=== PATIENT | female | born 1950 | race Caucasian/White ===

== ENCOUNTER 2017-12-01 08:29 | Outpatient (CLI) | payer MEDICARE ==
[~2017-12-01] VITALS: Ht 167.6 cm; Wt 99.1 kg
--- NOTE | ~2017-12-01 | HEMODYNAMI ---
PATIENT:LUCHO DUNCAN MEDICAL RECORD: [id number] : 52 LOCATION:[facility] ADMISSION DATE: 12/01/17 Generatedon:12/01/201711:15 Patient name: LUCHO DUNCAN Patient #: [id number] SSN: D OB: 1950 Date of study: 12/01/2017 Page: Of Hemodynamic Procedure Report Patient Data Patient Demographics Procedure consent was obtained First Name: LUCHO Gender: Female Last Name: PERLA : 1950 [facility] Initial: GENEVIEVE Age: 67 year(s) Patient #: [id number] Race: Unknown Additional ID: [id number] Contact details [address]: [address] [place] [address] State: [place] City: [place] Zip code: [address] Past Medical History Allergies Allergen Reaction Date Comments Reported Other allergy 12/01/2017 Sulfa, Metals Admission Admission Data Admission Date: 12/01/2017 Admission Time: 8:29 Admit Source: Other Height (in.): 66 BSA: 2.07 (m2) Height (cm.): 167.64 BMI: 35.19 (kg/m2) Weight (lbs.): 218 Weight (kg.): 98.88 Procedure Procedure Types Cath Procedure Diagnostic Procedure [facility] w/Coronaries PCI Procedure Coronary Stent Coronary Stent Initial Procedure Description Procedure Date Procedure Date: 12/01/2017 Procedure Start Time: 10:55 Procedure End Time: 11:13 Procedure Staff Name Function Harris Salas MD Performing Physician Gala Wilks RT Monitor Alma Willoughby RT Scrub Elizabeth Gerard RN Nurse Procedure Data Cath Procedure Fluoroscopy Diagnostic fluoroscopy Total fluoroscopy Time: 5.2 time: 5.2 min min Diagnostic fluoroscopy Total fluoroscopy dose: 812 dose: 812 mGy mGy Contrast Material Contrast Material Type Amount (ml) Isovue 300 85 Entry Location Entry Primary Successful Side Size Upsize Upsize Entry Closure Succes sful Closure Location (Fr) 1 (Fr) 2 (Fr) Remarks Device Remarks Femoral Right 5 Fr 6 Fr Exoseal artery Short Estimated blood loss: 10 ml Diagnostic catheters Device Type Used For End Catheter Placement MULTIPACK Pigtail 5 Fr Procedure catheter MULTIPACK JL 4.0 5Fr Procedure catheter Procedure Complications No complications Procedure Medications Medication Administration Route Dosage 0.9% NaCl I.V. 100 ml/hr Oxygen NC 2 l/min Lidocaine 2% added to field 20 Heparin Flush Bag added to field 2 bags (1000units/500ml NS) Fentanyl I.V. 50 mcg Versed I.V. 1 mg Versed I.V. 1 mg Fentanyl I.V. 50 mcg Fentanyl I.V. 50 mcg Fentanyl I.V. 50 mcg Heparin Bolus I.V. 4000 units Hemodynamics Rest BSA: 2.07 (m2) O2 Consumption: Estimated: 281.52 (ml/min) O2 Consumption indexed : Estimated:136 (ml/min/m) Pre Cath Intra NCS Post Cath Vital Signs Time Heart Resp SPO2 etCO2 NIBP (mmHg) Rhythm Pain Sedation Rate (ipm) (%) (mmHg) Status Level (bpm) 10:27:41 65 16 98 33.8 137/70(113) NSR 0 (11) 10(A) , No pain 10:31:59 64 15 98 33.8 132/69(112) NSR 0 (11) 10(A) , No pain 10:36:17 62 20 98 33 126/71(106) NSR 0 (11) 10(A) , No pain 10:40:27 62 17 96 35.3 107/64(86) NSR 0 (11) 10(A) , No pain 10:44:37 63 17 97 36 117/61(95) NSR 0 (11) 10(A) , No pain 10:48:53 63 17 97 36 112/60(88) NSR 0 (11) 10(A) , No pain 10:53:05 64 16 96 0 111/64(81) NSR 0 (11) 10(A) , No pain 10:57:19 68 15 96 26.2 121/58(79) NSR 0 (11) 9(A) , No pain 11:01:29 66 16 96 34.5 116/63(93) NSR 0 (11) 9(A) , No pain 11:05:39 70 16 96 34.5 115/63(84) NSR 0 (11) 9(A) , No pain 11:09:46 71 14 96 36.8 134/75(105) NSR 0 (11) 10(A) , No pain 11:14:03 70 12 96 36.7 141/74(117) NSR 0 (11) 10(A) , No pain Medications Time Medication Route Dose Verified Delivered Reason Not es Effectiveness by by 10:27:00 0.9% NaCl I.V. 100ml/hr Elizabeth Elizabeth used for Moustapha Gerard RN procedure 10:27:11 Oxygen NC 2 l/min Harris Elizabeth Per physician Josue Gerard RN 10:27:19 Lidocaine 2% added 20ml Harris Harris for local to vial Josue Salas MD anesthetic field 10:27:29 Heparin Flush added 2 bags Harris Harris used for Bag to Josue Salas MD procedure (1000units/500ml field NS) 10:52:39 Fentanyl I.V. 50 mcg Harris Elizabeth for sedation Josue Gerard RN 10:52:47 Versed I.V. 1 mg Harris Elizabeth for sedation Josue Gerard RN 10:54:07 Versed I.V. 1 mg Harris Elizabeth for sedation Josue Gerard RN 10:54:14 Fentanyl I.V. 50 mcg Harris Elizabeth for sedation Josue Gerard RN 10:56:52 Fentanyl I.V. 50 mcg Harris Trippfany for sedation Josue Gerard RN 10:58:41 Fentanyl I.V. 50 mcg Harris Elizabeth for sedation Josue Gerard RN 10:59:40 Heparin Bolus I.V. 4000 Harris Elizabeth for gonzález ified units Josue Gerard RN anticoagulation by Procedure Log Time Note 10:11:24 Admit Source: Other 10:11:58 Diagnostic Cath status Elective 10:12:00 Alma Willoughby RT(R) sent for patient. Start room use. 10:12:02 Time tracking: Regular hours 10:12:07 Plan of Care:Hemodynamics will remain stable., Cardiac rhythm will remain stable., Comfort level will be maintained., Respiratory function will remain adequate., Patient/ family verbilizes understanding of procedure., Procedure tolerated without complication., Recovers from procedure without complications.. 10:19:55 Patient received from Pre/Post Procedure Room to CCL 2 Alert and oriented. Tansferred to table in Supine position. 10:20:01 Warm blankets applied, and brian hugger turned on for patient comfort. 10:20:02 Correct patient and procedure confirmed by team. 10:20:03 Signed procedure consent form obtained from patient. 10:20:10 H&P Date Dictated: 12/01/2017 Emergent; H&P N/A. 10:20:11 Pre-procedure instructions explained to patient. 10:20:30 Family in waiting room. 10:20:32 Patient NPO since Midnight. 10:21:44 Patient allergic to Other allergySulfa, Metals 10:21:50 Is the patient allergic to Iodine/contrast media? No. 10:24:46 Was the patient premedicated? No 10:24:47 Is patient on blood thinner?Yes 10:24:50 ACC The patient was administered the following blood thiners within the last 24 hours: ACCPlavix 10:24:52 Patient diabetic? Yes. 10:24:53 If diabetic: On Metformin? No 10:24:55 Previous problem with sedation/anesthesia? No ? 10:24:58 Snore? Yes 10:24:58 Sleep apnea? Yes 10:24:59 Deviated septum? No 10:25:00 Opens mouth fully? Yes 10:25:01 Sticks out tongue? Yes 10:25:03 Airway obstruction? No ? 10:25:08 Dentures? Yes in tight 10:25:13 Pre procedure: right dorsailis pedis pulse 2+ Normal; easily identifiable; not easily obliterated 10:25:15 Pre procedure: left dorsailis pedis pulse 2+ Normal; easily identifiable; not easily obliterated 10:25:18 Patient pain scale 0/10 ?. 10:25:23 IV patent on arrival in left forearm with 0.9% NaCl at O. 10:25:26 Lab results completed and on chart. 10:25:30 Right groin area was prepped with chlora-prep and draped in sterile fashion 10:25:30 Alarms reviewed by R. N. 10:25:31 Sharps counted by scrub and verified by R.N. 10:26:36 Vital chart was started 10:27:00 0.9% NaCl 100ml/hr I.V. was administered by Elizabeth Gerard RN; used for procedure; 10:27:11 Oxygen 2 l/min NC was administered by Elizabeth Gerard RN; Per physician; 10:27:19 Lidocaine 2% 20ml vial added to field was administered by Harris Salas MD; for local anesthetic; 10:27:29 Heparin Flush Bag (1000units/500ml NS) 2 bags added to field was administered by Harris Salas MD; used for procedure; 10::39 Physician paged 10:44:23 Patient Height : 66 inches 10:44:33 Patient Weight : 218 lbs 10:52:15 Physician arrived 10:52:15 --------ALL STOP TIME OUT------ 10:52:16 Final Timeout: patient, procedure, and site verified with staff and physician. All members of the team are in agreement. 10:52:20 Right groin site verified by team. 10:52:24 Physical assessment completed. ASA score P 2 - A patient with mild systemic disease as per Harris Salas MD. 10:52:31 Sedation plan: IV Moderate Sedation Medication:Versed, Fentanyl 10:52:39 Fentanyl 50 mcg I.V. was administered by Elizabeth Gerard RN; for sedation; 10:52:47 Versed 1 mg I.V. was administered by Elizabeth Gerard RN; for sedation; 10:53:11 Use device set Femoral Dx 10:54:07 Versed 1 mg I.V. was administered by Elizabeth Gerard RN; for sedation; 10:54:14 Fentanyl 50 mcg I.V. was administered by Elizabeth Gerard RN; for sedation; 10:54:46 ACIST Syringe (88004) opened to sterile field. 10:54:46 Bag Decanter (2002) opened to sterile field. 10:54:47 Medline Cath Pack ([id number]) opened to sterile field. 10:54:47 SHEATH 5FR [place] (PEV471) opened to sterile field. 10:54:49 DIAGNOSTIC WIRE .035 260cm J wire (682918) opened to sterile field. 10:54:50 ACIST Hand Control (28739) opened to sterile field. 10:54:51 ACIST Manifold (56657) opened to sterile field. 10:54:52 DIAGNOSTIC Multipack 5Fr catheter set (BA6101) opened to sterile field. 10:54:55 Tegaderm 4 x 4 (1626W) opened to sterile field. 10:54:56 PERCUTANEOUS ENTRY 19GA needle opened to sterile field. 10:55:00 Procedure started. 10:55:01 Full Disclosure recording started 10:55:12 Local anesthetic to right femoral artery with Lidocaine 2% by Harris Salas MD.INITIAL ACCESS ONLY 10:55:25 A 5 Fr sheath was inserted into the Right Femoral artery 10:56:52 Fentanyl 50 mcg I.V. was administered by Elizabeth Gerard RN; for sedation; 10:57:31 A MULTIPACK Pigtail 5 Fr catheter was advanced over the wire and used for Procedure. 10:57:34 LV angiography performed. 10:57:41 EF : 55 % 10:57:43 Catheter removed. 10:58:14 A MULTIPACK JL 4.0 5Fr catheter was advanced over the wire and used for Procedure. 10:58:30 LCA angiography performed. 10:58:41 Fentanyl 50 mcg I.V. was administered by Elizabeth Gerard RN; for sedation; 10:58:47 Catheter removed. 10:59:40 Heparin Bolus 4000 units I.V. was administered by Elizabeth Gerard RN; for anticoagulation; verified by 11:01:45 CHOICE PT Extra Support 182cm wire ([id number]) opened to sterile field. 11:01:56 INFLATOR Merit BasixCompak (NJ7843) opened to sterile field. 11:01:57 GUIDE 6FR HS II catheter (UE3OVOP) opened to sterile field. 11:02:03 SHEATH 6FR [place] (YLF630) opened to sterile field. 11:02:24 Proceeding to intervention. 11:02:33 Sheath upsized to a 6 Fr Short. 11:02:46 6 Fr HS 2 guide catheter was inserted over the wire 11:02:51 pt ex wire advanced. 11:02:53 Wire advanced across lesion. 11:03:30 Inflation number: 1 A EUPHORA 3.5 x 15 Balloon ([id number]) was prepped and advanced across the Dist RCA, then inflated to 21 TE for 0:10 (min:sec). 11:03:51 Inflation number: 2 The EUPHORA 3.5 x 15 Balloon ([id number]) was reinflated across the Dist RCA, to 21 TE for 0:00 (min:sec). 11:03:55 Inflation number: 3 The EUPHORA 3.5 x 15 Balloon ([id number]) was reinflated across the Dist RCA, to 21 TE for 0:00 (min:sec). 11:04:11 Inflation number: 4 The EUPHORA 3.5 x 15 Balloon ([id number]) was reinflated across the Dist RCA, to 21 TE for 0:00 (min:sec). 11:04:17 Inflation number: 5 The EUPHORA 3.5 x 15 Balloon ([id number]) was reinflated across the Dist RCA, to 13 TE for 0:00 (min:sec). 11:04:56 Balloon removed over the wire. 11:06:00 Inflation Number: 1 A OPHELIA RX 3.5 x 18 stent ([id number]) was prepped and advanced across the Mid RCA. The stent was deployed at 21 TE for 0:10 (min:sec). 11:06:08 Inflation number: 2 The stent balloon was then re-inflated across the Mid RCA to 21 TE for 0:00 (min:sec). 11:07:38 Stent catheter was removed intact over wire. 11:08:29 Inflation Number: 1 A OPHELIA RX 3.5 x 26 stent ([id number]) was prepped and advanced across the Prox RCA. The stent was deployed at 21 TE for 0:10 (min:sec). 11:09:22 Stent catheter was removed intact over wire. 11:09:40 EXOSEAL 6Fr (EX600) opened to sterile field. 11:09:59 Sheath removed intact; hemostasis achieved with Exoseal to the Right Femoral artery. 11:10:12 Procedure ended.(Physican Out) 11:10:30 Fluoroscopy time 05.20 minutes. 11:10:34 Flurop Dose total: 812 11:10:34 Fluoroscopy dose: 812 mGy 11:10:38 Contrast amount:Isovue 300 85ml. 11:10:40 Sharps counted by scrub and verified by R.N. 11:10:42 Insertion/operative site no bleeding no hematoma. 11:10:46 Post right femoral artery:stable 11:10:56 Post Procedure Pulses reassessed and unchanged 11:11:05 Post-procedure physical assessment completed. ASA score P 2 - A patient with mild systemic disease as per Harris Salas MD. 11:11:08 Post procedure rhythm: unchanged. 11:11:11 Estimated blood loss: 10 ml 11:11:13 Post procedure instruction explained to patient.Patient verbalizes understanding. 11:11:27 Procedure type changed to Cath procedure, Diagnostic procedure, LHC, LHC w/Coronaries, PCI procedure, Coronary Stent, Coronary Stent Initial 11:11:29 Procedure and supply charges have been captured, reviewed, submitted and are correct. 11:13:15 Procedure Complication : No complications 11:13:20 Vital chart was stopped 11:13:29 See physician's report for complete and final results. 11:13:32 Report given to Pre/Post Procedure Room. 11:13:37 Patient transfered to Pre/Post Procedure Room with Stretcher. 11:13:39 Procedure ended. 11:13:39 Full Disclosure recording stopped 11:13:46 End room use (Document Last) Intervention Summary Intervention Notes Time ActionType Lesion and Equipment Used Action# Pressure Duration Attributes 11:03:30 Inflate Dist RCA EUPHORA 3.5 x 1 21 00:10 balloon 15 Balloon ([id number]) 11:03:51 Reinflate Dist RCA EUPHORA 3.5 x 2 21 00:00 balloon 15 Balloon ([id number]) 11:03:55 Reinflate Dist RCA EUPHORA 3.5 x 3 21 00:00 balloon 15 Balloon ([id number]) 11:04:11 Reinflate Dist RCA EUPHORA 3.5 x 4 21 00:00 balloon 15 Balloon ([id number]) 11:04:17 Reinflate Dist RCA EUPHORA 3.5 x 5 13 00:00 balloon 15 Balloon ([id number]) 11:06:00 Place stent Mid RCA OPHELIA RX 3.5 x 1 21 00:10 18 stent ([id number]) 11:06:08 Reinflate Mid RCA OPHELIA RX 3.5 x 2 21 00:00 stent 18 stent balloon ([id number]) 11:08:29 Place stent Prox RCA OPHELIA RX 3.5 x 1 21 00:10 26 stent ([id number]) Device Usage Item Name Manufacture Quantity Catalog Number [facility] Part Current M inimal Lot# / Charge Number Stock Stock Serial# Code ACIST Syringe Acist 1 95160 892098 605694 941440 2 0 (46555) Medical Systems Inc Bag Decanter Microtek 1 276604 65571 976887 5 () Medical Inc. Medline Cath Cardinal 1 [id number] 949591 24717 799846 5 Pack Health ([id number]) SHEATH 5FR Terumo 1 KZQ203 394658 476202 335919 4 0 [place] (TBI770) DIAGNOSTIC St [place] 1 357507 028690 857651 333402 3 0 WIRE .035 260cm J wire (183716) ACIST Hand Acist 1 60605 796403 178515 692074 5 Control Medical (30160) Systems Inc ACIST Manifold Acist 1 06076 217749 689482 281963 5 (71330) Medical Systems Inc DIAGNOSTIC Cardinal 1 JB1374 084792 27520 958793 3 0 Multipack 5Fr Health catheter set (CL7140) Tegaderm 4 x 4 3M 1 1626W 824933 187293 611872 5 (1626W) PERCUTANEOUS Cook Medical 1 N78809 893237 850552 5 ENTRY 19GA needle MULTIPACK Cardinal 1 238621 5 Pigtail 5 Fr Health catheter MULTIPACK JL Cardinal 1 219855 5 4.0 5Fr Health catheter CHOICE PT [place] 1 [id number] 404624 492128 587156 5 Extra Support Scientific 182cm wire ([id number]) INFLATOR Merit Merit 1 NG4684 395098 030030 324103 1 5 [employer] (PY8785) GUIDE 6FR HS Medtronic 1 IL5RNKI 178818 14972 369004 1 II catheter (DC5SGFA) SHEATH 6FR Terumo 1 KHY135 891711 465208 442239 4 0 [place] (BVO856) EUPHORA 3.5 x Medtronic 1 [id number] 066957 093987 770908 5 [id number] 15 Balloon ([id number]) OPHELIA RX 3.5 x Medtronic 1 [id number] 789184 2856466 267357 5 [id number] 18 stent ([id number]) OPHELIA RX 3.5 x Medtronic 1 [id number] 710362 9598376 277526 5 [id number] 26 stent ([id number]) EXOSEAL 6Fr Cardinal 1 EX600 285128 700727 242886 1 0 (EX600) Health Signature Audit [place] Stage Time Signature Unsigned Intra-Procedure 12/01/2017 Gala Wilks 11:15:50 AM RT(R) Signatures Monitor : Gala Wilks Signature : RT Date : Time : [id number] [place] [address]
--- NOTE | ~2017-12-01 | OP ---
PATIENT NAME: LUCHO DUNCAN MEDICAL RECORD: [id number] :52 LOCATION:D.CAT ADMISSION DATE: SURGEON: AMARI PEDRAZA MD DATE OF OPERATION: 12/01/2017 PROCEDURES: 1. PTCA stent RCA. 2. Left heart catheterization. 3. Selective coronary angiography. 4. Left ventriculogram. PROCEDURE IN DETAIL: After informed consent was obtained and after detailed explanation of risks, benefits as well as alternative therapies, the patient elected to proceed with angiogram and angioplasty. The right femoral area was prepped and draped in normal sterile fashion. The right femoral artery was cannulated via modified Seldinger technique with placement of 6-Kazakh sheath. All catheters exchanged through this sheath. FINDINGS: Left ventriculogram was performed and in standard 30-degree LUNSFORD view reveals good cardiac wall motion throughout all segments. Overall ejection fraction 55% to 60%. SELECTIVE CORONARY ANGIOGRAPHY: 1. Left main is with no significant angiographic disease. 2. Left anterior descending has previously placed stent that is widely patent with no significant restenosis. No disease elsewise. 3. Left circumflex has previously placed stent that is widely patent with no significant restenosis. No disease elsewise. 4. The right coronary has previously placed stents. There are multiple areas of 90% and some in-stent restenosis ____. PTCA STENT OF THE RIGHT CORONARY: Stents used are 3.5 x 26 and 3.5 x 18, both Mac stents. Result was 0% residual stenosis. OVERALL IMPRESSION: Successful percutaneous transluminal coronary angioplasty stent of the right coronary artery going from 90% initial stenosis to 0% residual. TRANSINT:[id number] Voice Confirmation ID: [id number] DOCUMENT ID: [id number] AMARI PEDRAZA MD CC: [id number] DICTATION DATE: 12/01/17 1114 BOILERMAKER ASSEMBLY AND ERECTION: 12/01/17 1148 DEP CLI 12/01/17 [place] [address]
[~2017-12-01 08:29] MED LIST: BYSTOLIC10 MG PO; COZAAR50 MG PO; GLUCOTROL 5 MG T5 MG; LASIX20 MG PO; MEVACOR20 MG PO; PLAVIX75 MG PO; REQUIP0.5 MG PO; ZOLOFT20 MG/ML PO
[2017-12-01] MEDS ORDERED: AMBIEN5 MG PO (09:27)
[2017-12-01] MEDS ORDERED: NEURONTIN 300300 MG PO (09:28)
[2017-12-01] MEDS ORDERED: MYSOLINE 50 MG50 MG PO (09:28)
[2017-12-01] MEDS ORDERED: PROBIOTIC1 EAC1 PO (09:29)
[2017-12-01] MEDS ORDERED: SINGULAIR10 MG PO (09:29)
[2017-12-01] MEDS ORDERED: VITAMIN D31000 UNIT PO (09:30)
[2017-12-01 09:35] VITALS: BP 122/84; Ht 167.6 cm; Wt 99.1 kg
[2017-12-01 09:57] LABS: ANION GAP 14.5 mmol/L (8-16); CALCIUM 8.8 mg/dL (8.5-10.1); CARBON DIOXIDE 25.5 mmol/L (21.0-32.0); CREATININE - SERUM 1.6 mg/dL (0.6-1.3)
[2017-12-01 10:29] LABS: BASOPHILS 0.1 % (0-2); EOSINOPHILS 2.8 % (0-7); HEMATOCRIT 36.2 % (36.0-48.0); HEMOGLOBIN 12.2 g/dL (12-16); IMMATURE GRANULOCYTES 0.5 % (0-5); LYMPHOCYTES 20.7 % (15-50); MCH 31.4 pg (26.0-34.0); MCHC 33.7 g/dL (31.0-37.0); MCV 93.3 fL (80.0-100.0); MEAN PLATELET VOLUME 10.9 fL (7.4-10.4); MONOCYTES 7.6 % (2-11); NEUTROPHILS 68.3 % (40-80); PLATELET COUNT 162 10x3/uL (130-400); RBC 3.88 10x6/uL (4.00-5.40); RDW 13.7 % (11.5-14.5); WBC 8.1 10x3/uL (4.8-10.8)
== END 2017-12-01 15:20 | disposition home or self-care (01) ==
LOC: D.CATH 08:29
PROVIDERS: Internal Medicine Interventional Cardiology
DX: I25.119 Atherosclerotic heart disease of native coronary artery with unspecified angina pectoris (principal); I10 Essential (primary) hypertension; E11.9 Type 2 diabetes mellitus without complications; F17.200 Nicotine dependence, unspecified, uncomplicated; Z01.812 Encounter for preprocedural laboratory examination
CPT/HCPCS: 93458; C9600

== ENCOUNTER 2018-05-08 09:17 | Outpatient (CLI) | payer MEDICARE ==
[~2018-05-08] VITALS: Ht 167.6 cm; Wt 100.0 kg
--- NOTE | ~2018-05-08 | HEMODYNAMI ---
PATIENT:LUCHO DUNCAN MEDICAL RECORD: [id number] : 52 LOCATION:[facility] ADMISSION DATE: 05/08/18 Generatedon:05/08/201812:13 Patient name: LUCHO DUNCAN Patient #: [id number] SSN: D OB: 1950 Date of study: 05/08/2018 Page: Of Hemodynamic Procedure Report Patient Data Patient Demographics Procedure consent was obtained First Name: LUCHO Gender: Female Last Name: PERLA : 1950 [facility] Initial: GENEVIEVE Age: 67 year(s) Patient #: [id number] Race: Unknown Additional ID: [id number] Contact details [address]: [address] [place] [address] State: [place] City: [place] Zip code: [address] Past Medical History Allergies Allergen Reaction Date Comments Reported Other allergy 12/01/2017 Sulfa, Metals Other allergy 05/08/2018 metals Sulfa drugs 05/08/2018 Admission Admission Data Admission Date: 05/08/2018 Admission Time: 9:17 Procedure Procedure Types Cath Procedure Diagnostic Procedure [facility] w/Coronaries PCI Procedure Coronary Stent Coronary Stent Initial Procedure Description Procedure Date Procedure Date: 05/08/2018 Procedure Start Time: 11:54 Procedure End Time: 12:12 Procedure Staff Name Function Harris Salas MD Performing Physician Madelyn Grady RT Monitor Kiko Brown RN Nurse Armida Perdomo RT Scrub Procedure Data Cath Procedure Fluoroscopy Diagnostic fluoroscopy Total fluoroscopy Time: 3.5 time: 3.5 min min Diagnostic fluoroscopy Total fluoroscopy dose: 485 dose: 485 mGy mGy Contrast Material Contrast Material Type Amount (ml) Isovue 300 68 Entry Location Entry Primary Successful Side Size Upsize Upsize Entry Closure Succes sful Closure Location (Fr) 1 (Fr) 2 (Fr) Remarks Device Remarks Femoral Right 5 Fr 6 Fr Exoseal artery Short Estimated blood loss: 10 ml Diagnostic catheters Device Type Used For End Catheter Placement MULTIPACK Pigtail 5 Fr LV Angiography catheter MULTIPACK JL 4.0 5Fr Left Coronary catheter Angiography MULTIPACK 3DRC 5Fr Right Coronary catheter Angiography Procedure Complications No complications Procedure Medications Medication Administration Route Dosage 0.9% NaCl I.V. 100 ml/hr Oxygen etCO2 Nasal cannula 2 l/min Heparin Flush Bag added to field 2 bags (1000units/500ml NS) Lidocaine 2% added to field 20 Versed I.V. 1 mg Fentanyl I.V. 50 mcg Fentanyl I.V. 50 mcg Versed I.V. 1 mg Heparin Bolus I.V. 4000 units Hemodynamics Rest Heart Rate: 61 (bpm) Snapshots Pre Cath Intra NCS Post Cath Vital Signs Time Heart Resp SPO2 etCO2 NIBP (mmHg) Rhythm Pain Sedation Rate (ipm) (%) (mmHg) Status Level (bpm) 11:46:16 62 17 97 0 145/75(116) NSR 0 (11) 10(A) , No pain 11:51:11 61 17 98 0 130/64(102) NSR 0 (11) 10(A) , No pain 11:56:00 57 18 98 36.8 126/80(106) NSR 0 (11) 10(A) , No pain 12:00:51 63 16 99 0 129/66(102) NSR 0 (11) 9(A) , No pain 12:05:42 65 17 98 0 129/69(96) NSR 0 (11) 9(A) , No pain 12:10:33 66 16 97 38.3 130/69(108) NSR 0 (11) 10(A) , No pain Medications Time Medication Route Dose Verified Delivered Reason Notes Effectiveness by by 11:44:30 0.9% NaCl I.V. 100 Kiko Kiko Per physician ml/hr Kevin Brown RN RN 11:44:40 Oxygen etCO2 2 Kiko Kiko Per physician Nasal l/min Kevin Brown cannula RN RN 11:44:51 Heparin Flush added 2 Kiko Kiko used for Bag to bags Kevin Brown procedure (1000units/500ml field UBALDO CONNER NS) 11:45:01 Lidocaine 2% added 20ml Kiko Kiko for local to vial Lorigan Tramigan anesthetic field UBALDO CONNER 11:49:54 Versed I.V. 1 mg Kiko Kiko for sedation Kevin Brown RN RN 11:50:02 Fentanyl I.V. 50 Kiko Kiko for sedation mcg Kevin Brown RN RN 11:54:49 Fentanyl I.V. 50 Kiko Kiko for sedation telma Brown RN RN 11:54:57 Versed I.V. 1 mg Kiko Kiko for sedation Kevin Brown RN RN 12:01:47 Heparin Bolus I.V. 4000 Kiko Kiko for units Kevin Brown anticoagulation RN change control analyst Log Time Note 11:26:54 Time tracking: Regular hours (M-F 7:00 - 5:00) 11:26:58 Plan of Care:Hemodynamics will remain stable., Cardiac rhythm will remain stable., Comfort level will be maintained., Respiratory function will remain adequate., Patient/ family verbilizes understanding of procedure., Procedure tolerated without complication., Recovers from procedure without complications.. 11:34:02 Kiko Brown RN sent for patient. Start room use. 11:38:28 Patient received from Pre/Post Procedure Room to CCL 1 Alert and oriented. Tansferred to table in Supine position. 11:38:29 Warm blankets applied, and brian hugger turned on for patient comfort. 11:38:29 Correct patient and procedure confirmed by team. 11:38:31 Signed procedure consent form obtained from patient. 11:38:32 ECG and BP/O2 sat monitors applied to patient. 11:38:33 Full Disclosure recording started 11:44:30 0.9% NaCl 100 ml/hr I.V. was administered by Kiko Brown RN; Per physician; 11:44:40 Oxygen 2 l/min etCO2 Nasal cannula was administered by Kiko Brown RN; Per physician; 11:44:51 Heparin Flush Bag (1000units/500ml NS) 2 bags added to field was administered by Kiko Brown RN; used for procedure; 11:45:01 Lidocaine 2% 20ml vial added to field was administered by Kiko Brown RN; for local anesthetic; 11:45:06 Vital chart was started 11:47:14 Baseline sample Acquired. 11:47:16 Rhythm: sinus rhythm 11:47:32 H&P Date Dictated: 05/01/2018 Within 30 days and on chart., H&P Addendum completed by physician on day of procedure. (MUST COMPLETE FOR ALL OUTPATIENTS). 11:47:33 Pre-procedure instructions explained to patient. 11:47:33 Pre-op teaching completed and patient verbalized understanding. 11:47:36 Family in patients room. 11:47:38 Patient NPO since Midnight. 11:47:52 Patient allergic to Other allergymetals 11:47:57 Patient allergic to Sulfa drugs 11:47:59 Is the patient allergic to Iodine/contrast media? Yes. 11:48:01 Is patient on blood thinner?Yes 11:48:10 Patient diabetic? Yes. 11:48:39 If diabetic: On Metformin? No 11:48:43 Previous problem with sedation/anesthesia? No ? 11:48:44 Snore? Yes 11:48:45 Sleep apnea? Yes 11:48:46 Deviated septum? No 11:48:47 Opens mouth fully? Yes 11:48:47 Sticks out tongue? Yes 11:48:49 Airway obstruction? No ? 11:48:53 Dentures? Yes IN 11:48:57 Pre procedure: right dorsailis pedis pulse 2+ Normal; easily identifiable; not easily obliterated 11:49:02 Pre procedure: right radial pulse 1+ Palpable, but thready & weak; easily obliterated 11:49:08 Patient pain scale 0/10 ?. 11:49:15 IV patent on arrival in left forearm with 0.9% NaCl at [facility]. 11:49:17 Lab results completed and on chart. 11:49:23 Right groin area was prepped with chlora-prep and draped in sterile fashion 11:49:23 Alarms reviewed by R. N. 11:49:24 Sharps counted by scrub and verified by R.N. 11:49:26 Final Timeout: patient, procedure, and site verified with staff and physician. All members of the team are in agreement. 11:49:28 Right groin site verified by team. 11:49:30 Physical assessment completed. ASA score P 2 - A patient with mild systemic disease as per Harris Salas MD. 11:49:32 Sedation plan: IV Moderate Sedation Medication:Versed, Fentanyl 11:49:54 Versed 1 mg I.V. was administered by Kiko Brown RN; for sedation; 11:50:02 Fentanyl 50 mcg I.V. was administered by Kiko Brown RN; for sedation; 11:51:21 Use device set Femoral Dx 11:51:22 ACIST Syringe (16223) opened to sterile field. 11:51:22 Bag Decanter () opened to sterile field. 11:51:23 Medline Cath Pack ([id number]) opened to sterile field. 11:51:24 ACIST Hand Control (20793) opened to sterile field. 11:51:24 ACIST Manifold (06476) opened to sterile field. 11:51:25 DIAGNOSTIC WIRE .035 260cm J wire (929635) opened to sterile field. 11:51:26 DIAGNOSTIC Multipack 5Fr catheter set (WH6438) opened to sterile field. 11:51:31 Tegaderm 4 x 4 (1626W) opened to sterile field. 11:51:32 SHEATH Prelude 5Fr 0.035 (YTK-5N-37-035) opened to sterile field. 11:52:21 Zero performed for pressure channel P1 11:52:25 Zero performed for pressure channel P1 11:52:27 Zero performed for pressure channel P1 11:54:33 Procedure started. 11:54:36 Local anesthetic to right femoral artery with Lidocaine 2% by Harris Salas MD.INITIAL ACCESS ONLY 11:54:49 Fentanyl 50 mcg I.V. was administered by Kiko Brown RN; for sedation; 11:54:57 Versed 1 mg I.V. was administered by Kiko Brown RN; for sedation; 11:55:21 A 5 Fr sheath was inserted into the Right Femoral artery 11:55:45 A MULTIPACK Pigtail 5 Fr catheter was advanced over the wire and used for LV Angiography. 11:56:05 LV gram done using LUNSFORD 11:56:10 EF : 50 % 11:56:12 Injector settings: Ml/sec: 10, Volume: 20, 11:56:14 Catheter removed. 11:56:24 A MULTIPACK JL 4.0 5Fr catheter was advanced over the wire and used for Left Coronary Angiography. 11:57:29 Catheter removed. 11:58:45 A MULTIPACK 3DRC 5Fr catheter was advanced over the wire and used for Right Coronary Angiography. 11:59:24 Catheter removed. 11:59:29 Use device set [facility] PCI 11:59:32 SHEATH Prelude 6Fr 0.035 (DDC-2I-91-035) opened to sterile field. 11:59:36 INFLATOR Merit BasixCompak (OB2751) opened to sterile field. 11:59:40 CHOICE PT Extra Support 182cm wire ([id number]) opened to sterile field. 12:01:06 Sheath upsized to a 6 Fr Short. 12:01:19 GUIDE 6FR HS II catheter ([id number]) opened to sterile field. 12:01:30 6 Fr HS II guide catheter was inserted over the wire 12:01:47 Heparin Bolus 4000 units I.V. was administered by Kiko Brown RN; for anticoagulation; 12:02:23 CHOICE PT ES wire advanced. 12:03:12 Inflate balloon Inflation number: 1 A EUPHORA 3.5 x 30 Balloon ([id number]) was prepped and advanced across the Dist RCA, then inflated to 17 TE for 0:08 (min:sec). 12:03:28 Inflation number: 2 The EUPHORA 3.5 x 30 Balloon ([id number]) was reinflated across the Dist RCA, to 17 TE for 0:06 (min:sec). 12:04:04 Balloon removed over the wire. 12:06:24 Place stent Inflation Number: 3 A OPHELIA Rx 4.0 x 38 stent ([id number]) was prepped and advanced across the Dist RCA. The stent was deployed at 17 TE for 0:07 (min:sec). 12:06:58 Stent catheter was removed intact over wire. 12:06:59 Wire removed. 12:06:59 Guide catheter removed. 12:07:13 Sheath removed intact; hemostasis achieved with Exoseal to the Right Femoral artery. 12:07:16 Procedure ended.(Physican Out) 12:07:26 Fluoroscopy time 03.50 minutes. 12:07:30 Fluoroscopy dose: 485 mGy 12:07:30 Flurop Dose total: 485 12:07:34 Contrast amount:Isovue 300 68ml. 12:07:35 Sharps counted by scrub and verified by R.N. 12:07:48 Insertion/operative site no bleeding no hematoma. 12:07:50 Post-op/insertion site Right Femoral artery dressed using a 4 x 4 and Tegaderm. 12:08:01 Post right femoral artery:stable, clean and dry 12:08:04 Post Procedure Pulses reassessed and unchanged 12:08:07 Post-procedure physical assessment completed. ASA score P 2 - A patient with mild systemic disease as per Harris Salas MD. 12:08:10 Post procedure rhythm: unchanged. 12:08:14 Estimated blood loss: 10 ml 12:08:15 Post procedure instruction explained to patient.Patient verbalizes understanding. 12:08:16 Patient needs reinforcement of post procedure teaching. 12:08:52 Procedure type changed to Cath procedure, Diagnostic procedure, LHC, LHC w/Coronaries, PCI procedure, Coronary Stent, Coronary Stent Initial 12:08:56 Procedure Complication : No complications 12:09:01 See physician's report for complete and final results. 12:09:14 EXOSEAL 6Fr (EX600) opened to sterile field. 12:10:55 Procedure and supply charges have been captured, reviewed, submitted and are correct. 12:11:02 Report given to Pre/Post Procedure Room. 12:12:12 Vital chart was stopped 12:12:15 Patient transfered to Pre/Post Procedure Room with Stretcher. 12:12:17 Procedure ended. 12:12:17 Full Disclosure recording stopped 12:12:19 End room use (Document Last) Intervention Summary Intervention Notes Time ActionType Lesion and Equipment Used Action# Pressure Duration Attributes 12:03:12 Inflate Dist RCA EUPHORA 3.5 x 1 17 00:08 balloon 30 Balloon ([id number]) 12:03:28 Reinflate Dist RCA EUPHORA 3.5 x 2 17 00:06 balloon 30 Balloon ([id number]) 12:06:24 Place stent Dist RCA OPHELIA Rx 4.0 x 3 17 00:07 38 stent ([id number]) Device Usage Item Name Manufacture Quantity Catalog Number Hospital Part Current Minimal Lot# / Charge Number Stock Stock Serial# Code ACIST Syringe Acist 1 48562 376278 771621 [id number] 20 (79931) [employer] Bag Decanter Microtek 1 2001S 919557 34025 431029 5 () Medical Inc. Medline Cath Cardinal 1 [id number] 238513 74325 323227 5 Pack Health ([id number]) ACIST Hand Acist 1 18030 937282 205628 677058 5 Control (48252) [employer] Inc ACIST Manifold Acist 1 55979 332599 054340 898454 5 (97991) [employer] Inc DIAGNOSTIC WIRE [facility] [place] 1 658082 249178 173348 990933 30 .035 260cm J wire (317401) DIAGNOSTIC Cardinal 1 TC5347 394721 46451 780015 30 Multipack 5Fr Health catheter set (DT1275) Tegaderm 4 x 4 3M 1 1626W 438993 859113 806129 5 (1626W) SHEATH Prelude Merit 1 PRA-7U-44-035 495948 205915 346207 5 5Fr 0.035 Medical (TBC-6U-96-035) MULTIPACK Cardinal 1 340107 5 Pigtail 5 Fr Health catheter MULTIPACK JL Cardinal 1 [id number] 5 4.0 5Fr Health catheter MULTIPACK 3DRC Cardinal 1 784952 5 5Fr catheter Health SHEATH Prelude Merit 1 JYG-5W-09-35 281483 9535672 639564 5 6Fr 0.035 Medical (LWE-1Z-80-035) INFLATOR Merit Merit 1 OT3990 985011 908466 576681 15 [place] [employer]fluid[employer]akPepper[employer] Medical (AW2440) CHOICE PT Extra [place] 1 [id number] 902032 368368 401716 5 Support 182cm Scientific wire ([id number]) GUIDE 6FR HS II Medtronic 1 [id number] 266652 20144 882676 1 catheter ([id number]) EUPHORA 3.5 x Medtronic 1 [id number] 505747 056659 170220 5 [id number] 30 Balloon ([id number]) OPHELIA Rx 4.0 x Medtronic 1 [id number] 040757 1485192 146746 5 [id number] 38 stent ([id number]) EXOSEAL 6Fr Cardinal 1 EX600 903609 990356 010333 10 (EX600) Health Signature Audit [place] Stage Time Signature Unsigned Intra-Procedure 05/08/2018 Madelyn 12:13:41 PM Counts RT(R) Signatures Monitor : Madelyn Signature : Counts RT Date : Time : [facility] [address] [place] [address]
--- NOTE | ~2018-05-08 | OP ---
PATIENT NAME: LUCHO DUNCAN MEDICAL RECORD: [id number] :52 LOCATION:D.CAT ADMISSION DATE: SURGEON: AMARI PEDRAZA MD DATE OF OPERATION: 05/08/2018 PROCEDURES: 1. PTCA stent RCA. 2. Left heart catheterization. 3. Selective coronary angiography. 4. Left ventriculogram. INDICATION: Angina and coronary artery disease. PROCEDURE IN DETAIL: After informed consent was obtained and after a detailed description of risks, benefits as well as alternative therapies, the patient elected to proceed with angiogram and angioplasty. The right femoral area was prepped and draped in normal sterile fashion. Right femoral artery was cannulated via modified Seldinger technique with placement of 6-Wallisian sheath. All catheters exchanged through this sheath. FINDINGS: Left ventriculogram was performed in standard 30-degree LUNSFORD view, reveals good cardiac wall motion throughout all segments. Overall ejection fraction estimated 60%. SELECTIVE CORONARY ANGIOGRAPHY: 1. Left main is with no significant angiographic disease. 2. Left anterior descending has previously placed stent that is widely patent with no significant restenosis. 3. Left circumflex has moderate irregularities, but no flow-limiting stenosis. 4. The right coronary artery has previously placed stents with up to 95% in-stent restenosis. PTCA STENT OF THE RCA: The stent used was a 4.0 x 38 mm [place]. Result was 0% residual stenosis. OVERALL IMPRESSION: Successful percutaneous transluminal coronary angioplasty stent of the right coronary artery going from 95% initial stenosis to 0% residual. TRANSINT:[id number] Voice Confirmation ID: [id number] DOCUMENT ID: [id number] AMARI PEDRAZA MD at 1230 CC: [id number] DICTATION DATE: 05/08/18 1213 NURSE'S ASSISTANT: 05/08/18 1222 DEP CLI 05/08/18 [place] [id number] [place] [id number]
[~2018-05-08 09:17] MED LIST changes: +AMBIEN5 MG PO; +MYSOLINE 50 MG50 MG PO; +NEURONTIN 300300 MG PO; +PROBIOTIC1 EAC1 PO; +SINGULAIR10 MG PO; +VITAMIN D31000 UNIT PO
[2018-05-08] MEDS ORDERED: ZOLOFT100 MG PO (09:35)
[2018-05-08] MEDS ORDERED: ISOSORBIDE MONO30 M1 PO (09:36)
[2018-05-08] MEDS ORDERED: ZYLOPRIM100 MG PO (09:38)
[2018-05-08] MEDS ORDERED: ZOCOR20 MG PO (09:38)
[2018-05-08] MEDS ORDERED: HYDROCODON-ACE1 EAC7 PO (09:39)
[2018-05-08] MEDS ORDERED: NATURAL VEGETA283 G1 PO (09:40)
[2018-05-08] MEDS ORDERED: PROVENTIL HFA6.7 GM INH (09:40)
[2018-05-08 09:48] VITALS: BP 140/65; Ht 167.6 cm; Wt 100.0 kg
[2018-05-08 10:08] LABS: BASOPHILS 0.3 % (0-2); EOSINOPHILS 3.1 % (0-7); HEMATOCRIT 34.6 % (36.0-48.0); HEMOGLOBIN 11.6 g/dL (12-16); IMMATURE GRANULOCYTES 0.6 % (0-5); LYMPHOCYTES 19.6 % (15-50); MCH 31.4 pg (26.0-34.0); MCHC 33.5 g/dL (31.0-37.0); MCV 93.5 fL (80.0-100.0); MEAN PLATELET VOLUME 11.3 fL (7.4-10.4); MONOCYTES 7.6 % (2-11); NEUTROPHILS 68.8 % (40-80); RDW 14.2 % (11.5-14.5); WBC 7.8 10x3/uL (4.8-10.8)
[2018-05-08 10:10] LABS: PLATELET COUNT 125 10x3/uL (130-400)
[2018-05-08 11:18] LABS: CALCIUM 8.4 mg/dL (8.5-10.1); CARBON DIOXIDE 23.4 mmol/L (21.0-32.0); CREATININE - SERUM 1.6 mg/dL (0.6-1.3); POTASSIUM - SERUM 4.4 mmol/L (3.5-5.1)
[2018-05-08] MEDS ORDERED: BAYER CHEWABLE81 MG PO (12:36)
== END 2018-05-08 16:00 ==
LOC: D.CATH 09:17
PROVIDERS: Internal Medicine Interventional Cardiology
DX: I25.119 Atherosclerotic heart disease of native coronary artery with unspecified angina pectoris (principal); T82.855A Stenosis of coronary artery stent, initial encounter; Z01.812 Encounter for preprocedural laboratory examination
CPT/HCPCS: 93458; C9600

== ENCOUNTER → 2020-03-05 08:57 | Outpatient (CLI) | payer MEDICARE ==
[2018-05-08 09:48] VITALS: BMI 35.6
[~2020-03-05 08:57] MED LIST changes: +BAYER CHEWABLE81 MG PO; +HYDROCODON-ACE1 EAC7 PO; +ISOSORBIDE MONO30 M1 PO; +NATURAL VEGETA283 G1 PO; +PROVENTIL HFA6.7 GM INH; +ZOCOR20 MG PO; +ZOLOFT100 MG PO; +ZYLOPRIM100 MG PO
== END | disposition home or self-care (01) ==
LOC: D.HCCECHO 08:57
PROVIDERS: ATTEND Internal Medicine Cardiovascular Disease
DX: I25.10 Atherosclerotic heart disease of native coronary artery without angina pectoris (principal); I10 Essential (primary) hypertension